=== PATIENT | female | born 2000 | race Caucasian/White ===

== ENCOUNTER 2024-10-25 14:26 | Outpatient (REF) | payer OTHER, SELFPAY ==
--- NOTE | ~2024-10-25 | XR_ITS ---
EXAMINATION: XR CHEST CLINICAL INFORMATION: R05.9 - Cough, unspecified COMPARISON: None available. TECHNIQUE: 2 views of the chest were obtained. FINDINGS: The cardiac, hilar, and mediastinal contours are normal. The lungs are clear bilaterally. There is no pneumothorax or pleural effusion. There is no focal osseous or soft tissue abnormality. XR/XR chest 2V IMPRESSION: Normal chest. Electronically signed by: Antonio Sorto MD 10/25/2024 03:13 PM EDT
[2024-10-25 17:37] LABS: Influenza A PCR NEGATIVE (Negative); Influenza B PCR NEGATIVE (Negative); Resp Syncy Virus RNA Qual PCR NEGATIVE (Negative); SARS COV2 PCR INHOUSE NEGATIVE (Negative)
== END 2024-10-25 14:27 | disposition home or self-care (01) ==
LOC: HO.HMGCX 14:26
PROVIDERS: PCP Internal Medicine; Visit Provider Physician Assistant
DX: R05.1 Acute cough (principal)
CPT/HCPCS: 0241U; 71046

== ENCOUNTER 2024-10-25 14:26 | Outpatient (AMB) | payer OTHER, SELFPAY ==
--- NOTE | 2024-10-25 14:31 | MHC.OFFWIV ---
Intake Vital Signs 10/25/24 14:36 Height 5 ft Weight 172 lb BMI 33.6 BP 120/74 Blood Pressure Location Rt brachial Position Sitting Respiration 16 Pulse 125 H Pulse Source Pulse Oximeter Temp 99.1 F Temp Source Oral Pulse Oximetry (%) 96 Oxygen Delivery Method Room Air Intake Visit Reasons: EP-?sinus infection Intake Note: EP c/o? sinus infection Electromedical Equipment Repairer Required: No Is last menstrual period known: Yes Last menstrual period: 10/17/24 Post menopausal: No Patient : No Allergies No Known Allergies Allergy (Verified 10/25/24 14:36) Do you need a note to return to daycare/school/sports/work: Yes HPI HPI Comments History of Present Illness Details Patient is a 23yo F who presents with concern sinus infection Ongoing since Wednesday night + onset scratchy throat and assumed allergies Took over the counter antihistaine without relief Wednesday am worsening symptoms of congestion, ST Wednesday night onset some chest tightness, cough, minimal phlegm + subjective fever/chills with fever of 99.1 here Last dose tylenol/sudafed Works at [employer] so + sick contacts, no sick close contacts She said appetite okay Minimal nausea without vomiting. + slight constipation, last BM was yesterday + body aches and fatigue She said bilateral ears are blocked and painful; sharp pain in R ear down R side of neck/glands States also sinus pressure in face PFSH Social History Patient : No Female Reproductive History Menstrual Date of last menstrual period: 10/17/24 Review of Systems Const Reports fatigue, Reports fever(s) and Reports headache(s) Eyes Denies change in vision ENT Reports otalgia, Reports facial pain, Reports headache(s), Reports nasal congestion, Reports nasal discharge, Reports sinus pressure, Reports sore throat and Denies throat swelling Card Denies chest pain, Denies syncope and Reports dyspnea Resp Reports chest congestion, Reports cough, Denies hemoptysis and Reports dyspnea GI Denies abdominal pain, Reports constipation, Denies diarrhea, Reports nausea and Denies vomiting Neuro Denies syncope and Reports headache(s) Endo Reports fatigue Aller/Immun Denies throat swelling Physical Exam Vital Signs: Last Vital Signs Temp 99.1 F 10/25/24 14:36 Pulse 125 H 10/25/24 14:36 Resp 16 10/25/24 14:36 BP 120/74 10/25/24 14:36 Pulse Ox 96 10/25/24 14:36 Oxygen Delivery Method Room Air 10/25/24 14:36 BMI result Body Mass Index 33.6 General: Non-toxic, NAD. Speaking full sentences. Skin: Warm dry throughout Eye: EOMI, PERRL HENT: Airway patent. Uvula midline. Minimal pharyngeal erythema without edema or exudates. No ASSISTANT ACCOUNTING MANAGER. Bilateral canals clear. TMs have minimal erythema without perforation or bulging membranes. + clear fluid noted bilarerally. No hemotympanum noted. + sinus ttp to maxillary and frontal sinuses Respiratory: CTA bilaterally. No wheezes, rales or rhonchi Cardiac: slightly tachycardic. No murmur MSK: Full ROM extremities. Neurology: Alert. No aphasia or facial droop. Gait without abnormality Psych: Good mood and affect Assessment & Plan Assessment & Plan (1) Acute cough: Code(s): R05.1 - Acute cough Plan: Patient seen and evaluated. Vitals show + low grade fever and tachycardia Lungs were CTA but will order chest xray due to tightness complaint; pt denies chance Chest xray: I viewed negative for infiltrate. + scoliosis Will tx with nasal steroid and continued OTC decongestant COVID/RSV/flu swab obtained and sent Pt aware and will try symptomatic management with medications above If swab is negative, she will trial symptomatic management and if worsening fever or facial pain she will use Augmentin as prescribed She is aware if swab is negative, she does not need antibiotics and she will not fill script. Patient gave verbal understanding and had no additional questions or concerns at time of discharge All questions answered Orders: Orders XR chest 2V Today R05.9 - Cough, unspecified SARS-CoV2/FLU/RSV Today R05.1 - Acute cough Medications: New amoxicillin-pot clavulanate 875-125 mg 1 tab PO BID 20 tabs 0RF ipratropium bromide administer into each nostril 2 sprays intranasal BID-TID PRN 30 mL 0RF allergy symptoms Coding Level of Care Code New Pt Level 3 (45472) Diagnoses Acute cough R05.1
[2024-10-25 14:36] VITALS: BP 120/74; PULSE 125; RESP 16; TEMP 37.3; O2SAT 96; BMI 33.6
--- OUTSIDE RECORDS SUMMARY | 2024-10-25 15:19 | XMS_ITS | Encounter Summary ---
Author Organization [facility] Address [address] [place] [address] Phone Care Team Providers Care Hand Spring Former Name Role Phone Violette Garcia MD Primary Care Provider [phone] Encounter Details Date Type Department Care Team (Late st Contact Info) Description 10/18/2009 [place] [facility] [place] [address] [place], [place] [phone] Family Medicine, Physician [address] [place], [place] [address] Social History Tobacco Use Types Packs/Day Years Used Date Smoking Tobacco: Never Assessed Comments Unknown Sex and Gender Information Value Date Recorded Sex Assigned at Female 03/05/2020 12:45 AM EDT Legal Sex Female 5:12 PM EDT Gender Identity Female 03/05/2020 12:45 AM EDT Sexual Orientation Bisexual 04/02/2022 2: 32 PM EDT documented as of this encounter Plan of Treatment Not on file documented as of this encounter Visit Diagnoses Not on filedocumented in this encounter Care Teams Hand Spring Former Relationship Specialty Start Date End Date Violette Garcia MD [address] [place] [address] PCP - General Pediatrics 12/26/21 10/27/23 documented as of this encounter
== END 2024-10-25 15:08 | disposition home or self-care (01) ==
PROVIDERS: Visit Provider Physician Assistant
DX: R05.1 Acute cough (principal)

== ENCOUNTER → 2024-10-25 14:56 | Outpatient (BNV) | payer OTHER, SELFPAY | PROVIDERS: PCP Internal Medicine; Visit Provider Radiology Diagnostic Radiology | DX: R05.9 Cough, unspecified (principal) | CPT/HCPCS: 71046 ==

== ENCOUNTER 2025-04-03 12:43 | Outpatient (AMB) | payer OTHER, SELFPAY ==
--- NOTE | 2025-04-03 12:43 | AM.OFFWIN_ITS ---
Intake Vital Signs 04/03/25 12:44 Height 5 ft Weight 174 lb BMI 34.0 BP 124/76 Blood Pressure Location Lt brachial Position Sitting Pulse 75 Pulse Source Pulse Oximeter Temp 97.8 F Temp Source Oral Pulse Oximetry (%) 100 Oxygen Delivery Method Room Air Intake Visit Reasons: EP Rt ear pain, itchy Intake Note: Patient presents with c/o right ear pain, redness, itching x4 days but it worsened yesterday. Allergies No Known Allergies Allergy (Verified 04/03/25 12:46) Do you need a note to return to daycare/school/sports/work: No HPI HPI Comments History of Present Illness Details History - The patient is a 24-year-old female pr esenting with right ear pain. - She states that she has had a pain and itch in the right ear for the past 3 days. - The right ear pain began recently with out any cold symptoms such as fever or congestion. - The patient denies water exposure or t rauma to the ear and occasionally uses Q-tips for cleaning. - She denies fever, chills, congestion, TELLES, dizziness, sore throat, cough, or sick contacts. Physical Exam General: Cooperative, healthy appearing, comfortable, no acute distress and well developed Head: Normal to inspection Ears: Right ear canal is red and slightly swollen, no discharge noted. Left ear normal. No tragus or mastoid tenderness noted. TM's visualized and not bulging. Face and sinus: Normal facial exam. No TTP of the sinuses. Neck: Normal visual inspection. Full ROM. No lymphadenopathy noted. Respiratory: Normal respiratory effort and able to speak in complete sentences. Clear to auscultation bilaterally. No w/r/r noted. Cardiac: RRR, no m/r/g noted. Normal S1 and S2 noted. Skin: No rashes or lesions noted Neuro: Patient oriented x3 Patient was informed and verbally consented to the use of an ambient scribe for clinic note documentation during this visit. Review of Systems Const All systems reviewed & are unremarkable except as noted in HPI and below Physical Exam Vital Signs: Last Vital Signs Temp 97.8 F 04/03/25 12:44 Pulse 75 04/03/25 12:44 BP 124/76 04/03/25 12:44 Pulse Ox 100 04/03/25 12:44 Oxygen Delivery Method Room Air 04/03/25 12:44 BMI result Body Mass Index 34.0 Assessment & Plan Assessment & Plan (1) Ear pain, right: Code(s): H92.01 - Otalgia, right ear Plan Most likely OM vs OE vs cerumen vs ET dysfunction Plan - Prescribe ear drops with a mild steroid for right ear canal inflammation. - Monitor for symptoms such as fever or congestion. - Use Tylenol or Motrin for pain relief. - Apply ear drops three times daily. - Consider ENT referral if symptoms do not improve. Medications: New hydrocortisone-acetic acid 1-2 % 4 drps otic (ear) right TID 10 mL 0RF Coding Level of Care Code Est Pt Level 3 (40521) Diagnoses Ear pain, right H92.01
[2025-04-03 12:44] VITALS: BP 124/76; PULSE 75; TEMP 36.6; O2SAT 100; BMI 34.0
--- OUTSIDE RECORDS SUMMARY | 2025-04-03 15:24 | XMS_ITS | Encounter Summary ---
Author Organization [facility] Address [address] [place] [address] Phone Care Team Providers Care Residence Life Coordinator Name Role Phone Violette Garcia MD Primary Care Provider [phone] Encounter Details Date Type Department Care Team (Late st Contact Info) Description 10/18/2009 [place] [facility] [place] [address] [place], [place] [phone] Family Medicine, Physician [address] [place], [place] [address] Social History Tobacco Use Types Packs/Day Years [...] on filedocumented in this encounter Care Teams Residence Life Coordinator Relationship Specialty Start Date End Date Violette Garcia MD [address] [place] [address] PCP - General Pediatrics 12/26/21 10/27/23 documented as of this encounter
--- OUTSIDE RECORDS SUMMARY | 2025-04-03 15:24 | XMS_ITS | Encounter Summary ---
Author Organization [facility] Address [address] [place] [address] Phone Care Team Providers Care Ammonium Sulfate Operator Name Role Phone Violette Garcia MD Primary Care Provider [phone] Encounter Details Date Type Department Care Team (Late st Contact Info) Description 03/31/2010 Documentation [facility] [place] [address] [place], [place] [phone] Family Medicine, Physician [address] [place], [place] [address] Social History Tobacco Use Types Packs/Day Years [...] on filedocumented in this encounter Care Teams Ammonium Sulfate Operator Relationship Specialty Start Date End Date Violette Garcia MD [address] [place] [address] PCP - General Pediatrics 12/26/21 10/27/23 documented as of this encounter
--- OUTSIDE RECORDS SUMMARY | 2025-04-03 15:25 | XMS_ITS | Encounter Summary ---
Author Organization [facility] Address [address] [place] [address] Phone Care Team Providers Care Care Information Associate Name Role Phone Violette Garcia MD Primary Care Provider [phone] Encounter Details Date Type Department Care Team (Late st Contact Info) Description 08/10/2011 Documentation [facility] [place] [address] [place], [place] [phone] Family Medicine, Physician [address] [place], [place] [address] Social History Tobacco Use Types Packs/Day Years [...] on filedocumented in this encounter Care Teams Care Information Associate Relationship Specialty Start Date End Date Violette Garcia MD [address] [place] [address] PCP - General Pediatrics 12/26/21 10/27/23 documented as of this encounter
--- OUTSIDE RECORDS SUMMARY | 2025-04-03 15:25 | XMS_ITS | Encounter Summary ---
Author Organization [facility] Address [address] [place] [address] Phone Care Team Providers Care Meter Tester Polyphase Name Role Phone Violette Garcia MD Primary Care Provider [phone] Reason for Visit * Reason Comments Med Refill Encounter Details Date Type Department Care Team (Late st Contact Info) Description 09/01/2020 Refill [facility] - [address] [address] Cassandra Tan NP Menorrhagia with regular cycle Social History Tobacco Use Types Packs/Day Years Used Date Smoking Tobacco: Never Smokeless Tobacco: Never Comments:Unknown if ever smo ked Alcohol Use Standard Drinks/Week Comments No 0 (1 standard drink = 0.6 oz pur e alcohol) Hunger/Food Answer Date Recorded In the last 12 months, did y ou or your family ever eat less than you felt you should because there wasn't enough money for food? No 03/04/2020 Stable Housing Answer Date Recorded Are you worried that in the next 2 months you may not have stable housing? No 03/04/2020 Transportation Concerns Answer Date Rec orded In the last 12 months, have you or your family ever had to go without healthcare because you didn't have a way to get there? No 03/04/2020 Hazards in Home Answer Date Recorded Think about the place you li ve. Do you have problems with any of the following? Pests (mice or roaches), mold, no/not working smoke detectors, water leaks, no window guards. No 2019 Financing Utilities Answer Date Recorde d In the last 12 months, has t he electric, gas, oil, or water company threatened to shut off your services in your home? No 03/04/2020 Safety at Home Answer Date Recorded Are you or your family worried about feeling saf e in your home? No 03/04/2020 Outside Support Answer Date Recorded Do you feel that you need mo re support from other people or programs to help you care for yourself or your family? No 03/04/2020 Understanding Health Concerns Answer Da te Recorded Do you need help understandi ng your or your child's healthcare needs (diagnosis, medications, plan, etc.)? No 03/04/2020 Financing Health Concerns Answer Date R ecorded In the last 12 months, was t here a time when your child needed to see a doctor or get medications or supplies but could not because of cost? No 03/04/2020 Missing School or Work Answer Date Alex rded Did you or your child miss s chool or work because of a health problem that could have been avoided? No 03/04/2020 Comments No Sex and Gender Information Value Date Recorded Sex Assigned at Female 03/05/2020 12:45 AM EDT Legal Sex Female 5:12 PM EDT Gender Identity Female 03/05/2020 12:45 AM EDT Sexual Orientation Bisexual 04/02/2022 2: 32 PM EDT documented as of this encounter Miscellaneous Notes * Telephone Encounter - Ellen Potts LPN - 09/02/2020 10:28 AM EDT Faxed refill request / per JMT note she wanted follow up in 3 months - [facility] informed [facility] documented in this encounter Plan of Treatment Not on file documented as of this encounter Visit Diagnoses Diagnosis Menorrhagia with regular cycle documented in this encounter Care Teams Meter Tester Polyphase Relationship Specialty Start Date End Date Violette Garcia MD [address] [place] [address] PCP - General Pediatrics 12/26/21 10/27/23 documented as of this encounter
--- OUTSIDE RECORDS SUMMARY | 2025-04-03 15:25 | XMS_ITS | Encounter Summary ---
Author Organization [facility] Address [address] [place] [address] Phone Care Team Providers Care Alley Worker Name Role Phone Violette Garcia MD Primary Care Provider [phone] Encounter Details Date Type Department Care Team (Late st Contact Info) Description 04/06/[address] [facility] [place] [address] [place], [place] [phone] Family Medicine, Physician [address], [place] [address] Social History Tobacco Use Types Packs/Day Years [...] on filedocumented in this encounter Care Teams Alley Worker Relationship Specialty Start Date End Date Violette Garcia MD [address] [place] [address] PCP - General Pediatrics 12/26/21 10/27/23 documented as of this encounter
--- OUTSIDE RECORDS SUMMARY | 2025-04-03 15:25 | XMS_ITS | Encounter Summary ---
Author Organization [facility] Address [address] [place] [address] Phone Care Team Providers Care Store Associate Name Role Phone Violette Garcia MD Primary Care Provider [phone] Encounter Details Date Type Department Care Team (Late st Contact Info) Description 01/14/2017 Conversion En[place] [facility] [place] [address] [place] [address] Social History Tobacco Use Types Packs/Day Years Used Date Smoking Tobacco: Unknown Comments:Unknown if ever smo ked Comments Unknown Sex and Gender Information Value [...] on filedocumented in this encounter Care Teams Store Associate Relationship Specialty Start Date End Date Violette Garcia MD [address] [place] [address] PCP - General Pediatrics 12/26/21 10/27/23 documented as of this encounter
--- OUTSIDE RECORDS SUMMARY | 2025-04-03 15:25 | XMS_ITS | Encounter Summary ---
Author Organization [facility] Address [address] [place] [address] Phone Care Team Providers Care Diesel Powerplant Mechanic Name Role Phone Violette Garcia MD Primary Care Provider [phone] Encounter Details Date Type Department Care Team (Late st Contact Info) Description 06/16/2011 Documentation [facility] [place] [address] [place], [place] [phone] Family Medicine, Physician [address] [place], [place] [address] Social History Tobacco Use Types Packs/Day Years [...] on filedocumented in this encounter Care Teams Diesel Powerplant Mechanic Relationship Specialty Start Date End Date Violette Garcia MD [address] [place] [address] PCP - General Pediatrics 12/26/21 10/27/23 documented as of this encounter
--- OUTSIDE RECORDS SUMMARY | 2025-04-03 15:25 | XMS_ITS | Encounter Summary ---
Author Organization [facility] Address [address] [place] [address] Phone Care Team Providers Care Promotion Producer Name Role Phone Violette Garcia MD Primary Care Provider [phone] Reason for Visit * Reason Comments Med Refill Encounter Details Date Type Department Care Team ([facility] st Contact Info) Description 12/20/2021 Refill [facility] - [address] [address] Shila Connell MD [address] [facility] [place] [address] [place] [address] Menorrhagia with regular cycle Social History Tobacco [...] encounter Miscellaneous Notes * Telephone Encounter - Chiqui Jara DO - 12/20/2021 1:30 PM EDT Chart reivewed- pt on this OCP for a long time- very stable- so I will RF until FEB when she sees new PCP. * Telephone Encounter - Ellen Potts LPN - 12/20/2021 11:10 AM EDT Faxed refill request/ call to teen - she gave permission for mother to speak; parent informed that we have not seen her for PE since 2019; mother stated they were planning on transitioning to adult medicine; leaving for vacation Wednesday - hoping that oncall will fill until February when they can get in to new provider documented in this encounter Plan of Treatment Not on file documented as of this encounter Visit Diagnoses Diagnosis Menorrhagia with regular cycle documented in this encounter Care Teams Promotion Producer Relationship Specialty Start Date End Date Violette Garcia MD [address] [place] [address] PCP - General Pediatrics 12/26/21 10/27/23 documented as of this encounter
--- OUTSIDE RECORDS SUMMARY | 2025-04-03 15:25 | XMS_ITS | Encounter Summary ---
Author Organization [facility] Address [address] [place] [address] Phone Care Team Providers Care Roller Bearing Inspector Name Role Phone Violette Garcia MD Primary Care Provider [phone] Encounter Details Date Type Department Care Team (Late st Contact Info) Description 10/07/2011 Documentation [facility] [place] Family Medicine [address] [place], [place] [phone] Family Medicine, Physician [address], [place] [address] Social History Tobacco Use Types Packs/Day Years [...] on filedocumented in this encounter Care Teams Roller Bearing Inspector Relationship Specialty Start Date End Date Violette Garcia MD [address] [place] [address] PCP - General Pediatrics 12/26/21 10/27/23 documented as of this encounter
--- OUTSIDE RECORDS SUMMARY | 2025-04-03 15:25 | XMS_ITS | Encounter Summary ---
Author Organization [facility] Address [address] [place] [address] Phone Care Team Providers Care Contact Assembler Name Role Phone Violette Garcia MD Primary Care Provider [phone] Reason for Visit * Reason Comments Med Refill Encounter Details Date Type Department Care Team (Late st Contact Info) Description 08/30/2021 Refill [facility] - [address] [address] Cassandra Tan NP Menorrhagia with regular cycle [...] encounter Miscellaneous Notes * Telephone Encounter - Cassandra Tan NP - 08/31/2021 1:09 PM EDT I will send for a 3 month supply so she can try to be seen for a PE - but needs to be seen in the office prior to any further refills - JMT * Telephone Encounter - Viry Martinez MA - 08/31/2021 11:28 AM EDT See message. Also sent to the waterfront director to book apts * Telephone Encounter - Viry Martinez MA - 08/31/2021 11:27 AM EDT Pharm refill for BC Lakshmi. Last PE 02/2020. Did have a BC check a year ago. Will send a message to Tasha and the waterfront director to book both apts. Was advised to be seen last fall. No apts have been booked. documented in this encounter Plan of Treatment Not on file documented as of this encounter Visit Diagnoses Diagnosis Menorrhagia with regular cycle documented in this encounter Care Teams Contact Assembler Relationship Specialty Start Date End Date Violette Garcia MD [address] [place] [address] PCP - General Pediatrics 12/26/21 10/27/23 documented as of this encounter
--- OUTSIDE RECORDS SUMMARY | 2025-04-03 15:25 | XMS_ITS | Encounter Summary ---
Author Organization [facility] Address [address] [place] [address] Phone Care Team Providers Care Pre Algebra Teacher Name Role Phone Violette Garcia MD Primary Care Provider [phone] Encounter Details Date Type Department Care Team (Late st Contact Info) Description 08/10/2011 [place] [facility] [place] [address] [place], [place] [phone] Family Medicine, Physician [address], [place] [address] Social History Tobacco Use Types Packs/Day Years [...] on filedocumented in this encounter Care Teams Pre Algebra Teacher Relationship Specialty Start Date End Date Violette Garcia MD [address] [place] [address] PCP - General Pediatrics 12/26/21 10/27/23 documented as of this encounter
--- OUTSIDE RECORDS SUMMARY | 2025-04-03 15:25 | XMS_ITS | Encounter Summary ---
Author Organization [facility] Address [address] [place] [address] Phone Care Team Providers Care Supervisor Gear Repair Name Role Phone Violette Garcia MD Primary Care Provider [phone] Encounter Details Date Type Department Care Team (Late st Contact Info) Description 08/10/2011 Documentation [facility] [place] Family [place] [address] [place], [place] [phone] Family Medicine, Physician [address], [place] [address] Social History Tobacco Use Types Packs/Day Years [...] on filedocumented in this encounter Care Teams Supervisor Gear Repair Relationship Specialty Start Date End Date Violette Garcia MD [address] [place] [address] PCP - General Pediatrics 12/26/21 10/27/23 documented as of this encounter
--- OUTSIDE RECORDS SUMMARY | 2025-04-03 15:25 | XMS_ITS | Patient Health Record ---
Author Organization [employer] [facility] Address [address] [place] [address] Care Team Providers Care Wheel Filler Name Role Phone DIANA RIGGS, VICTOR MANUEL Primary Care Provider Terrie ALLIE Pompa Unavailable [phone] Allergies No Known Allergies Results Component Value Reference Range Notes PDF Report Reviewed date:12/05/2024 04:36:01 PM Interpretation: Performing Lab:[facility], [address] [place] [address], Phone - [phone], [facility] Notes/Report: No. of containers..01 ThinPrep Vial Dates / Results....never LMP / Prev Treat...[id number]=[id number] Clinical Information:[id number] IGP, CtNg, Cultur e Under 30 Reviewed date:12/05/2024 04:35:23 PM Interpretation: Performing Lab:[facility], [address] [place] [address], Phone - [phone], [facility] Notes/Report: Clinical Information:[id number] LMP / Prev Treat...[id number] Dates / Results....never No. of containers..01 ThinPrep Vial Clinical Information:[id number] LMP / Prev Treat...[id number] Dates / Results....never No. of containers..01 ThinPrep Vial DIAGNOSIS: EPITHELIAL CELL ABNORMALITY. ATYPICAL SQUAMOUS CELLS OF UNDETERMINED SIGNIFICANCE (ASC-US). Specimen adequacy: Satisfact ory for evaluation. No endocervical component is identified. Clinician provided ICD10: Z01.419 Z11.3 Z72.51 Performed by: Daren ross, User Interface Designer (ASCP) Electronically signed by: Ryne Cardozo MD, Pathologist . . Pathologist provided ICD10: R87.610 Note: The Pap smear is a screening test designed to aid in the detection of premalignant and malignant conditions of the uterine cervix. It is not a diagnostic procedure and should not be used as the sole means of detecting cervical cancer. Both false-positive and false-negative reports do occur. . Test Methodology: This liquid based ThinPrep(R) pap test was screened with the use of an image guided system. . See below for HPV testing results. . Chlamydia, Nuc. Acid Amp Negative Negative Gonococcus, Nuc. Acid Amp Negative Negative HPV Aptima Negative Negative This nucleic acid amplification test detects fourteen high-risk HPV types (16,18,31,33,35,39,45,51,52,5 6,58,59,66,68) without differentiation. Reason For Referral No Information Medications Medication SIG (Take, Route, Fr equency, Duration) Notes Start Date End Date Status hydrOXYzine HCl 25 MG 1 tablet as needed Orally Once a day Active Plan B One-Step 1.5 MG as directed Orall y once; Duration: 1 days 11/27/2024 Active Sertraline HCl 50 MG 1 tablet Orally Once a day Active Social History Tobacco Use: Social History Observation Description Date Details (start date - stop date) Never Smoker NA - NA Sexual History Question Answer Notes Had sex in the past 12 months (vaginal, oral, or anal)? Yes with Men only Use protection? Yes How often? All of the time Prevention strategies discussed: Condoms Have you ever had a Sexually transmitted disease ? No Last menstrual period 10/25/2024 AUDIT-C (Standard) Question Answer Notes Did you have a drink contain ing alcohol in the past year? Yes How often did you have a dri nk containing alcohol in the past year? 2 to 4 times a month (2 points) How many drinks did you have on a typical day when you were drinking in the past year? 1 or 2 drinks (0 point) How often did you have six o r more drinks on one occasion in the past year? Never (0 point) Points 2 Interpretation Negative Tobacco Control (Standard) Question Answer Notes Tobacco use: Nonsmoker Problems Problem Type SNOMED Code ICD Code Onset Dates Problem Status W/U Status Risk Notes Problem Generalized anxiety disorder (13729117) Generalized anxiety disorder (F41.1) Active confirmed Problem Uncomplicated asthma (disorder) (428904621) Unspecified asthma, uncomplicated (J45.909) Active confirmed Problem COVID-19 (706694828) COVID-19 (U07.1) Active confirmed Vital Signs Temperature 98.0 degrees Fahrenheit 11/27/2024 Blood pressure diastolic 68 mm Hg 11/27/2024 Height 60.75 in 11/27/2024 Blood pressure systolic 120 mm Hg 11/27/2024 Weight 168 lbs 11/27/2024 BMI 32 kg/m2 11/27/2024 Encounters Encounter Location Date Provider Diagnosis [facility] [address] [place] [address] 11/27/2024 ALLIE MCCARTNEY Encounter for gynecological examination (general) (routine) without abnormal findings Z01.419 ; Encounter for screening for infections with a predominantly sexual mode of transmission Z11.3 ; High risk heterosexual behavior Z72.51 and Encounter for prescription of emergency contraception Z30.012 Assessments Encounter Date Diagnosis (ICD Code) Assessment Notes Treatment Notes Treatment Clinical Notes Section Notes 11/27/2024 Encounter for screening for infections with a predominantly sexual mode of transmission (ICD-10 - Z11.3) 11/27/2024 Encounter for gynecological examination (general) (routine) without abnormal findings (ICD-10 - Z01.419) Discussed cervical cancer screening with cytology every 3 years as per ASCCP guidelines. Advised continued annual pelvic exams. Patient encouraged to increase her level of exercise. SBE technique encouraged/tau ght. Safe sexual practices and STI prevention discussed. 11/27/2024 High risk heterosexual behavior (ICD-10 - Z72.51) 11/27/2024 Encounter for prescription of emergency contraception (ICD-10 - Z30.012) Plan Of Treatment Next Appt Details Provider Name:ALLIE Abel, 11/29/2025 08:40:00 AM, [address], [address], [place], [address], Insurance Providers Payer Name Payer Address Payer Phone Subscriber Number Group Number Insured Name Patient Relationship to Insured Coverage Start Date Coverage End Date [facility] [address] [place] [address] [id number] YRIS SIMS Self - patient is the insured 3 Medical (General) History Medical History History ICD Code Major depressive disorder, recurrent epi sode 296.3 Obesity, class 1 E66.811 Generalized anxiety disorder F41.1 Unspecified asthma, uncomplicated J45.90 9 COVID-19 U07.1
--- OUTSIDE RECORDS SUMMARY | 2025-04-03 15:25 | XMS_ITS | Clinical Summary ---
Author Organization [facility] Address [address] [place] [id number] Phone Care Team Providers Care Audograph Operator Name Role Phone Unavailable Primary Care Provider Unavailabl e Allergies No known active allergies Medications levonorgestrel- ethinyl estradiol (Larissia) 0.1-20 MG-MCG per tabletIndicatio ns:Menorrhagia with regular cycle Take 1 tablet by mouth once daily. 84 tablet 4 04/05/2023 Active hydrOXYzine 25 MG tabletIndicatio ns:Anxiety and depression Take 1 tablet (25 mg total) by mouth nightly as needed for anxiety. 10 tablet 5 09/24/2023 Active sertraline 25 MG tabletIndicatio ns:Anxiety and depression Take 1 tablet (25 mg total) by mouth daily. 90 tablet 1 04/17/2024 Active Active Problems Problem Noted Date Diagnosed Date Generalized abdominal pain 09/14/2022 Assessment & Plan (07/26/2023 9:59 AM EST): Getting constipated from time to time. Add probiotic, magnesium, fiber supplement, lots of water. Miralax prn. Assessment & Plan (04/05/2023 6:15 PM EST): Will keep log of pain, diarrhea, anxiety, food intake and bring to next visit in 1 mo. Assessment & Plan (09/14/2022 1:20 PM EDT): Suspect a disorder of brain-gut interaction e.g. functional dyspepsia or IBS, but will get screening labs to r/o inflammatory disease, celiac, and thyroid d/o. Pt will keep food/sx journal, will try probiotic supplement, increase fiber in diet, and consider a lactose-free diet temporarily, as her symptoms did escalate after a recent course of antibiotics. F/u in 1 mo. Increased bowel frequency 09/14/2022 Assessment & Plan (09/14/2022 1:20 PM EDT): Suspect a disorder of brain-gut interaction e.g. functional dyspepsia or IBS, but will get screening labs to r/o inflammatory disease, celiac, and thyroid d/o. Pt will keep food/sx journal, will try probiotic supplement, increase fiber in diet, and consider a lactose-free diet temporarily, as her symptoms did escalate after a recent course of antibiotics. F/u in 1 mo. Anxiety and depression 04/02/2022 Overview (04/28/2023): 04/28/23 - Pt has a history of anxiety and depression that seems to have increased with the stressor of a recent break-up with her boyfriend of three years - pt is struggling with motivation, energy, difficulties falling asleep, and some panic symptoms. Assessment & Plan (09/24/2023 11:07 PM EDT): Dramatic and impressive response to sertraline 25 mg daily. Was able to get cdl a driver's license and drove here today! No therapy right now due to finances but very satisfied with meds. Feels everything is manageable. Will plan for therapy again when it is affordable. Gave renewals up to 6 mo to get her to appt with new PCP. Assessment & Plan (07/26/2023 10:00 AM EST): Great control with sertraline 25 mg daily. Does not feel the need to increase dose. Tolerating well. Needing hydroxyzine prn. OK to try melatonin 0.5 mg qHS for sleep. F/u in 2-3 mo (before 10/27/23). Assessment & Plan (06/04/2023 10:15 AM EST): Continue sertraline - will retry increasing from 12.5 to 25 mg daily. If not tolerated, would try switching to fluoxetine or escitalopram starting with lowest dose. Continue hydroxyzine 25 mg prn at night - working really well when needs it. Assessment & Plan (06/01/2023 12:08 PM EST): -Ongoing symptoms of anxiety and depression (sleep issues, low motivation, nervousness, panicky symptoms). Depression symptoms have worsened recently and exacerbated by break-up with long-term boyfriend PLAN: Follow up with [facility] and bridge as necessary Patient goal is to decrease symptoms of depression and feel more motivated to engage in daily tasks. Behavioral Recommendations: Challenge negative thoughts about self and focus on positive, continue to engage in positive activities to increase positive experiences.. Pt will use grounding and deep breathing to manage anxiety symptoms c. Pt will follow-up with PCP re: medication consultation as well as abdominal pain Assessment & Plan (05/14/2023 2:45 PM EST): -Ongoing symptoms of anxiety and depression (sleep issues, low motivation, nervousness, panicky symptoms). Depression symptoms have worsened recently and exacerbated by break-up with long-term boyfriend PLAN: Follow up with [facility] and bridge as necessary Patient goal is to decrease symptoms of depression and feel more motivated to engage in daily tasks. Behavioral Recommendations: Challenge negative thoughts about self and focus on positive, continue to engage in positive activities to increase positive experiences.. Pt will use grounding and deep breathing to manage anxiety symptoms c. Pt will follow-up with PCP re: medication consultation as well as abdominal pain Assessment & Plan (04/28/2023 1:20 PM EST): -Ongoing symptoms of anxiety and depression (sleep issues, low motivation, nervousness, panicky symptoms). Depression symptoms have worsened recently and exacerbated by break-up with long-term boyfriend PLAN: Follow up with [facility] and bridge as necessary Patient goal is to decrease symptoms of depression and feel more motivated to engage in daily tasks. Behavioral Recommendations: Challenge negative thoughts about self and focus on positive, continue to engage in positive activities to increase positive experiences.. Pt will use grounding and deep breathing to manage anxiety symptoms c. Pt will follow-up with PCP re: medication consultation as well as abdominal pain Assessment & Plan (04/05/2023 6:15 PM EST): Scheduled intake appt for 04/28/23. Would like help with depression and anxiety. F/u with me in 1 mo as well. Assessment & Plan (06/05/2022 11:37 AM EST): 06/05/22-Ongoing symptoms of anxiety and depression (sleep issues, low motivation, nervousness, difficulty with change) more difficult with lack of routine and uncertainty about next steps. PLAN: 1. Follow up with [facility] two months. 2. Patient goal is to decrease symptoms of depression as evidenced by reduction in score on PHQ9. 3. Behavioral Recommendations: a. Continue mood tracking on norberto have been using. b. Pt. Will write a to do list of no more than 3 achievable things c. Pt. Will look into possible job at [employer] and apply. Assessment & Plan (05/09/2022 11:58 AM EST): 04/18/22- Pt. Reports slight improvement in mood and motivation in the last few weeks. Current anxiety due to upcoming decision and pressure to figure out next steps re: college/job. PLAN: 1. Follow up with [facility] three weeks 2. Patient goal is to decrease symptoms of depression as evidenced by reduction in score on PHQ9. 3. Behavioral Recommendations: a. Continue mood tracking on norberto have been using. b. Pt. Will write a to do list of no more than 3 achievable things c. Pt. Will continue doing activity in morning before computer work. Assessment & Plan (04/18/2022 11:37 AM EST): 04/18/22- Pt. Reports ongoing anxiety for years (overthinking, worried about doing certain things like driving, hx of panic attacks). Feels like it may have gotten worse. Feels increasing depression during the last few months (low motivation, difficulty sleeping, feeling sad, being negative about things, diminished appetite). Pt. Would benefit from CBT strategies to notice patterns of thinking and develop healthy coping strategies. PLAN: 1. Follow up with [facility] three weeks 2. Patient goal is to decrease symptoms of depression as evidenced by reduction in score on PHQ9. 3. Behavioral Recommendations: a. Continue mood tracking on norberto have been using. b. Pt. Will write a to do list of no more than 3 achievable things c. Pt. Will go for short walk in AM Assessment & Plan (04/03/2022 2:58 PM EDT): Discussed briefly - increasing symptoms recently. Some self-medicating. Warm handoff to behavioral health counselor Jonelle Fajardo. Assessment & Plan (04/02/2022 3:33 PM EDT): 04/02/22-WHO today due to positive PHQ9. Pt. Reports ongoing anxiety for years (overthinking, worried about doing certain things like driving, hx of panic attacks). Feels like it may have gotten worse. Feels increasing depression during the last few months (low motivation, difficulty sleeping, feeling sad, being negative about things, diminished appetite). Pt. Would benefit from CBT strategies to notice patterns of thinking and develop healthy coping strategies. PLAN: 1. Follow up with [facility] two weeks 2. Patient goal is to decrease symptoms of depression as evidenced by reduction in score on PHQ9. 3. Behavioral Recommendations: a. Pt. Will try several relaxation strategies at bedtime. b. Pt. Will try to have small snacks throughout the day when not feeling hungry. c. Pt. Will do some movement activity each day. Refusal of human papilloma virus (HPV) vaccinati on 03/05/2020 Overview (03/05/2020): Offered at 02/2020 and refused by mom, discussed, counseling offered, questions answered, VIS reviewed. Assessment & Plan (04/05/2023 6:16 PM EST): Continues to decline HPV vaccine today Hip pain 06/11/2011 Overview (09/05/2020): R Hip pain Assessment & Plan (04/02/2022 2:36 PM EDT): Still has some idiopathic hip pain with excessive walking (many miles several days in a row). Manageable, no need for intervention right now. Resolved Problems Problem Noted Date Diagnosed Date Resolved Date RLQ abdominal pain 04/16/2023 4 Overview (04/16/2023): Started with RLQ abd pain on 04/14/23, sharp, intermittent. Nausea and low-grade temp as well. Decreased appetite, no emesis. Up to 8/10 pain. Worse with movement. Does not radiate. Stools daily, sometimes hard, sometimes loose. Reports recent increase in stress and anxiety. Ddx includes appendicitis, kidney stone, ovarian cyst, ovarian torsion, UTI/pyelo, IBS, constipation, intestinal gas pain, obstruction, hernia, (ectopic or otherwise), PID. Ordered US of appendix, scheduled for 8pm this evening. Urine dip reassuring, but will send for UC and UA to check for crystals. Urine for gonorrhea and chlamydia sent. Unfortunately, I did not get a urine hCG during visit and would check this if continues with symptoms and other etiologies ruled out. Pain control discussed, red flags reviewed. May need ED evaluation to further investigate of US appendix is normal. Assessment & Plan (04/16/2023 12:25 PM EST): Started with RLQ abd pain on 04/14/23, sharp, intermittent. Nausea and low-grade temp as well. Decreased appetite, no emesis. Up to 8/10 pain. Worse with movement. Does not radiate. Stools daily, sometimes hard, sometimes loose. Reports recent increase in stress and anxiety. Ddx includes appendicitis, kidney stone, ovarian cyst, ovarian torsion, UTI/pyelo, IBS, constipation, intestinal gas pain, obstruction, hernia, (ectopic or otherwise), PID. Ordered US of appendix, scheduled for 8pm this evening. Urine dip reassuring, but will send for UC and UA to check for crystals. Urine for gonorrhea and chlamydia sent. Unfortunately, I did not get a urine hCG during visit and would check this if continues with symptoms and other etiologies ruled out. Pain control discussed, red flags reviewed. May need ED evaluation to further investigate of US appendix is normal. Counseling done at length with [facility], who understands and agrees with plan. Sleep disorder 04/08/2012 04/03/2022 Immunizations Immunization Administration Dates Next Due COVID-19 Pfizer, bivalent, 12+ years 04/02/2022 DTaP 5 12/06/2006, 5,06/25/2003,03/07,01/08/2003 H1N1 03/26/2009 Hep A, ped/adol 06/11/2015,04/10/2014 Hep B, ped/adol 09/07/2003,06/25/2003,2002 Hib (HbOC) 03/03/2004 Hib (PRP-T) 06/25/2003,03/07/2003,01/08/2003 IPV 12/06/2006, 4,03/07/2003,01/08 Influenza Split 04/02/2011 Influenza, injectable, quadr ivalent, preservative free 06/04/2023,04/02/2022,03/04/2020,03/02,06/16/2016,06/11/2015,04/10/2014 ,04/14/2013 Influenza, injectable, trivalent 008,04/20/2007,03/22/2007,04/29 Influenza, intranasal, trivalent 03/21/2012,03/01 MMR 10/31/2003 MMRV 12/06/2006 Meningococcal Conj (Menactra) MCV4P 03/04/2020,1 06/10/2013 Pneumococcal Conjugate 03/03/2004,2003,03/07/2003,01/08 Tdap 04/10/2014 Varicella 10/31/2003 Family History Medical History Relation Name Comments Asthma Brother Cheikh Skaggs Anxiety disorder Mother Mayra Skaggs Asthma Mother Mayra Skaggs Eczema Mother Mayra Skaggs Hypertension Mother Mayra Skaggs Diabetes Paternal Grandfather Kidney disease Paternal Grandfather Meniere's disease Paternal Grandfather Relation Name Status Comments Brother Cheikh Skaggs Alive Brother: Asthma Cousin 1 Cousin: Autism, Seizure disorder, ADD/ADHD Cousin 2 Cousin: Autism, Seizure disorder, ADD/ADHD Cousin 3 Cousin: Autism, Seizure disorder, ADD/ADHD Father Jhony Skaggs Alive Father: Alive a nd well Maternal Grandfather Materna l grandfather: Hypertension, *Sudden /NM under 55, Cancer, prostate, Heart disease, Hyperlipidemia, Coronary artery disease Maternal Grandmother Materna l grandmother: Hypertension Mother Mayra Skaggs Alive Mother: Hyper tension, Anxiety, asthma, Eczema Other No family histo ry of *CVA/Stroke, Family history of Depression, No family history of *Thrombophilia, No family history of *Dental caries Paternal Grandfather Alive Paterna l grandfather: Diabetes,Kidney Disease,Meniers disease Social History Tobacco Use Types Packs/Day Years [...] there wasn't enough money for food? No 04/05/2023 Stable Housing Answer Date Recorded Are you worried that in the next 2 months you may not have stable housing? No 04/05/2023 Transportation Concerns Answer Date Rec orded In the last 12 months, have you or your family ever had to go without healthcare because you didn't have a way to get there? No 04/05/2023 Hazards in Home Answer Date Recorded Think about the place you li ve. Do you have problems with any of the following? Pests (mice or roaches), mold, no/not working smoke detectors, water leaks, no window guards. No 2022 Financing Utilities Answer Date Recorde d In the last 12 months, has t he [employer], gas, oil, or water [employer] threatened to shut off your services in your home? No 04/05/2023 Safety at Home Answer Date Recorded Are you or your family worried about feeling saf e in your home? No 04/05/2023 Outside Support Answer Date Recorded Do you feel that you need mo re support from other people or programs to help you care for yourself or your family? No 04/05/2023 Understanding Health Concerns Answer Da te Recorded Do you need help understandi ng your or your child's healthcare needs (diagnosis, medications, plan, etc.)? No 04/05/2023 Financing Health Concerns Answer Date R ecorded In the last 12 months, was t here a time when your child needed to see a doctor or get medications or supplies but could not because of cost? No 04/05/2023 Missing School or Work Answer Date Alex rded Did you or your child miss s chool or work because of a health problem that could have been avoided? No 04/05/2023 Comments No Sex and Gender Information Value Date Recorded Sex Assigned at Female 03/05/2020 12:45 AM EDT Legal Sex Female 5:12 PM EDT Gender Identity Female 03/05/2020 12:45 AM EDT Sexual Orientation Bisexual 04/02/2022 2: 32 PM EDT Last Filed Vital Signs Vital Sign Reading Time Taken Comments Blood Pressure 111/73 09/24/2023 2:45 PM EDT Pulse 92 09/24/2023 2:45 PM EDT Temperature 36.8 C (98.3 F) 09/24/2023 2:45 PM EDT Respiratory Rate - - Oxygen Saturation - - Inhaled Oxygen Concentration - - Weight 66 kg (145 lb 6.4 oz) 09/24/2023 2:45 PM EDT Height 156.2 cm (5' 1.5 ) 07/26/2023 9:31 AM EST Body Mass Index 27.03 07/26/2023 9:31 AM EST Plan of Treatment Health Maintenance Due Date Last Done Comments HPV Vaccines (1 - 3-dose series) 2017 Men B Vaccine (1 of 2 - Standard) 2018 DTaP,Tdap,and Td Vaccines (7 - Td or Tdap) 04/10/2024 04/10/2014, 12/06/2006, 06/10/2004, Additional history exists Influenza Vaccines (#1) 2024 06/04/19 24, 04/02/2022, 03/04/2020, Additional history exists COVID-19 Vaccine ( - 2024-2 6 season) 2025 04/02/2022, 02/05/2021, 01/15/2021 Hepatitis B Vaccines Completed 09/07/2003, 06/25/2003, 2002 HIB Vaccines Completed 03/03/2004, 06/01, 03/07/2003, Additional history exists Pneumococcal Vaccine Completed 03/03/2004, 06/25/2003, 03/07/2003, Additional history exists IPV Vaccines Completed 12/06/2006, 01/2004, 03/07/2003, Additional history exists MMR Vaccines Completed 12/06/2006, 10/31/2003 Varicella Vaccines Completed 12/06/2006, 10/31/2003 Hepatitis A Vaccines Completed 06/11/2015, 04/10/20 14 Meningococcal Vaccine Completed 03/04/2020, 014 Procedures * Due to [place] law, this organization might not be sharing sensitive test results. Procedure Name Priority Date/Time Associated Diagnosis Comments CHLAMYDIA AND GONORRHEA, AMPLIFIED Routine 04/15/2023 4:26 PM EST Screening for chlamydial disease from Last 3 Months or Most Recently Relevant to Health Maintenance Results * Due to [place] law, this organization might not be sharing sensitive test results. * Chlamydia and Gonorrhoea, Amplified (04/15/2023 4:26 PM EST) Chlamydia Trachomatis, DNA Probe NEGATIVE (NEG) [facility] Comment: No Chlamydia Trachomatis RNA detected in this patient's sample (REFERENCE RANGE/NORMAL VALUE: NOT DETECTED) Note: This test uses slot floorman- mediated amplification method to detect rRNA from C. Trachomatis URINE GC AMP PROBE NEGATIVE (NEG) [facility] Comment: No Neisseria Gonorrhoeae RNA detected in this patient's sample (REFERENCE RANGE/NORMAL VALUE: NOT DETECTED) NOTE: This test uses slot floorman-mediated amplification method to detect rRNA from N.Gonorrhoeae. A negative result does not preclude infection. In the case of a negative urine result, testing of an endocervical(female) or urethral (male) specimen is recommended if there is high clinical suspicion of infection. Due to very high sensitivity of Nucleic Acid Amplification Test, false positive results may occur. Therefore, specimen handling is extremely important. In patients in whom the disease is unlikely, additional sample for testing should be considered after an initial positive result. The performance characteristics of this test have not been evaluated in children. The Aptima Combo2 assay is not intended for the evaluation of suspected sexual abuse or for other medico-legal indications. The ordering provider should assess if the patient had consensual sex without risk of sexual abuse. Consult the [facility] if needed. Contact phone number . Therapeutic failure or success cannot be determined with the Aptima Combo2 assay since nucleic acid may persist following appropriate antimicrobial therapy. The Centers for Disease Control and Prevention (CDC) recommends confirmatory retesting using culture or a different nucleic acid amplification test when positive results occur, if indicated. Testing performed or reported by [facility], a Service of [facility], [address], [place] [address] Jose Rafael Damico MD, Sales Engagement Manager [facility]# [id number] Urine (Urine) 04/15/2023 4:2 6 PM EST 04/15/2023 4:28 PM EST us Rosmery Quarles MD LAB MICROBIOLOGY - GENERAL ORDER EMILIA Final Result [facility] from Last 3 Months or Most Recently Relevant to Health Maintenance
--- OUTSIDE RECORDS SUMMARY | 2025-04-03 15:25 | XMS_ITS | Encounter Summary ---
Author Organization [facility] Address [address] [place] [address] Phone Care Team Providers Care Anode Crew Supervisor Name Role Phone Violette Garcia MD Primary Care Provider [phone] Encounter Details Date Type Department Care Team (Late st Contact Info) Description 03/31/2010 Documentation [facility] [place] [address] [place], [place] [id number] Family Medicine, Physician [address], [place] [id number] Social History Tobacco Use Types Packs/Day Years [...] on filedocumented in this encounter Care Teams Anode Crew Supervisor Relationship Specialty Start Date End Date Violette Garcia MD [address] [place] [id number] PCP - General Pediatrics 12/26/21 10/27/23 documented as of this encounter
== END 2025-04-03 13:14 | disposition home or self-care (01) ==
PROVIDERS: Visit Provider Physician Assistant Medical
DX: H92.01 Otalgia, right ear (principal)